=== PATIENT | female | born 1985 | race Caucasian/White ===

== ENCOUNTER 2021-03-07 20:02 | Emergency (ER) | payer OTHER, SELFPAY ==
[2021-03-07 20:03] VITALS: BP 201/138; PULSE 75; RESP 18; TEMP 36.1; O2SAT 99; BMI 32.5
[2021-03-07 20:17] VITALS: BP 174/102; PULSE 65; RESP 17; O2SAT 97
--- NOTE | 2021-03-07 20:46 | EKG12_ITS ---
Test Reason : HTN Blood Pressure : / mmHG Vent. Rate : 065 BPM Atrial Rate : 065 BPM P-R Int : 166 ms QRS Dur : 084 ms QT Int : 436 ms P-R-T Axes : 058 015 -15 degrees QTc Int : 453 ms Normal sinus rhythm T wave abnormality, consider inferior ischemia Nonspecific T wave abnormality :Anterior-Lateral Abnormal ECG Confirmed by FRED BLAKELY, DEYANIRA ([id number]), makeup editor JOSEPH DAHL ([id number]) on 03/09/2021 8:53:30 AM Referred By: ALINA Confirmed By:DEYANIRA IBARRA MD
[2021-03-07 21:09] VITALS: O2SAT 98
[2021-03-07 21:11] VITALS: BP 170/107; PULSE 74
--- NOTE | 2021-03-07 21:20 | RAD_ITS ---
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 LUNGS: No focal airspace consolidation. No pulmonary edema. No pleural effusion. No pneumothorax. MEDIASTINUM AND CARDIOVASCULAR STRUCTURES: Cardiac silhouette not enlarged. Central airways and mediastinal contour are unremarkable. BONES AND SOFT TISSUES: No acute findings. RAD/Chest 1 View (Portable) IMPRESSION: No radiographic evidence of acute cardiopulmonary disease. at 2217 Reported and signed by: Aric Galicia MD Electronically Signed: Aric Galicia MD at 22:16 EDT Tel , Service support ,
--- NOTE | 2021-03-07 21:37 | EX.ED.DYSGE1 ---
HPI History of Present Illness Chief Complaint: Hypertension Narrative Narrative: Patient presenting with elevated blood pressure. She states that she has been feeling this probably for about a month. She states that she has been seeing eye floaters. [place]. She noticed that her blood pressure was high and her family member was a nurse and checked her blood pressure again after he started feeling a little bit nauseous. She did complain of a mild chest discomfort. She was not short of breath. No fever, chills. Her family member gave her 100 of losartan and her blood pressure has come down. She feels improved currently. Patient has a history of high blood pressure when in her 20s when she had gestational high blood pressure. She has not been on anything since then. [facility] Medical History Hypertension Home Medications losartan 50 mg PO DAILY #30 tab 03/07/21 [Rx Last Taken Unknown] Allergy/AdvReac Type Severity Reaction Status Date / Time No Known Allergies Allergy Verified 03/07/21 20:05 Social History Smoking Status: Never smoker ROS ROS ED Constitutional Constitutional ED: Denies chills, fever(s) or sweats Eyes Eyes: Denies blurry vision or change in vision ENT ENT ED: Denies ear pain or sore throat Cardiovascular Cardiovascular: Reports chest pain; Denies palpitations or racing heartbeat Respiratory/Chest Respiratory/Chest: Denies cough, dyspnea or sputum Gastrointestinal Gastrointestinal: Reports nausea; Denies abdominal pain, constipation, diarrhea or vomiting Genitourinary Genitourinary ED: Denies dysuria, hematuria or urinary frequency Musculoskeletal Musculoskeletal: Denies arthralgias, myalgias or neck pain Integumentary Denies abscess, Abrasions or rash Neurologic Neurologic: Reports headache(s); Denies paresthesias or weakness Psychiatric Psychiatric: Denies anxiety, depression, suicidal ideation or suicidal thoughts Endocrine Endocrinology: Denies polydipsia or polyuria EXAM Physical Exam Const Vital Signs: 03/07/21 20:03 03/07/21 20:17 03/07/21 20:38 Temperature 96.9 F L Temperature Source Temporal Pulse Rate 75 65 Respiratory Rate 18 17 Respiratory Effort Normal Respiratory Pattern Normal Blood Pressure 201/138 H 174/102 H Blood Pressure Mean 159 126 Pulse Ox 99 97 Oxygen Delivery Method Room Air Room Air 03/07/21 21:09 03/07/21 21:11 03/07/21 22:08 Temperature Temperature Source Pulse Rate 74 79 Respiratory Rate 17 Respiratory Effort Respiratory Pattern Blood Pressure 170/107 H 150/86 H Blood Pressure Mean 128 107 Pulse Ox 98 98 Oxygen Delivery Method Room Air Room Air General Appearance ED: Negative for pallor HEENT Reports normocephalic, head/scalp atraumatic and moist mucous membranes Eyes PERRL and EOMs intact bilaterally Neck no lymphadenopathy and supple Chest Wall inspection of chest normal and palpation of chest normal Resp normal respiratory effort and clear to auscultation bilaterally Auscultation: Negative for rales, rhonchi or wheezes Cardio regular rate and regular rhythm GI normal to inspection, nondistended, normoactive bowel sounds and non-distended Auscultation: normoactive bowel sounds Palpation: soft Narrative: Deferred Extremity normal to inspection General Extremety ED: Yes edema and tenderness General Extremity: edema Neuro oriented x3, CN's II-XII intact bilaterally, moves all extremities, no focal motor deficits and no sensory deficits noted Sensorium / Orientation: alert Motor Exam: strength 5/5 throughout Psych mental status grossly normal Attitude: No agitated Skin no rashes or lesions noted and no wounds General Skin Exam: Negative for jaundice or pallor MDM MDM MDM Narrative Medical decision making narrative: 32-year-old female presenting with elevated blood pressure. She states she has not had this in a long time. Patient also states she felt a little bit of discomfort in her chest but was not describing chest pressure. She also had some nausea. Patient does not have any cardiac history except for a murmur. EKG on my interpretation shows normal sinus rhythm at [address]-T wave changes. Chest x-ray my interpretation shows no acute cardiopulmonary process and the radiologist does agree. Blood work is ultimately normal troponin is 7. Patient's blood pressure has come down after taking 100 mg of losartan. I do not believe she needs another dose of medication here in the ED. I will start her on losartan 50 mg p.o. daily. She will monitor her blood pressures at home and keep a diary. Patient will follow up with her PCP on outpatient basis. Impression: 1. Hypertension?new 2. Chest pain noncardiac Lab Data Labs: Laboratory Results - last 24 hr 03/07/21 03/07/21 20:26 20:26 WBC 8.8 RBC 4.61 Hgb 13.7 Hct 40.8 MCV 88.5 MCH 29.7 MCHC 33.6 RDW Std Deviation 37.8 RDW Coeff of Guillaume 11.9 Plt Count 275 MPV 10.4 Immature Gran % (Auto) 0.600 Neut % (Auto) 54.6 Lymph % (Auto) 33.2 [place] % (Auto) 7.6 Eos % (Auto) 3.2 Baso % (Auto) 0.8 Absolute Neuts (auto) 4.8 Absolute Lymphs (auto) 2.93 Nucleated RBC % 0 Sodium 139 Potassium 3.6 Chloride 104 Carbon Dioxide 28.0 Anion Gap 7 BUN 19 H Creatinine 0.83 Estim Creat Clear Calc 86.75 Est GFR (MDRD) Af Amer 102 Est GFR (MDRD) Non-Af 84 BUN/Creatinine Ratio 22.9 H Glucose 107 H Calcium 8.9 Troponin I High Sens 7 Radiography Diagnostic Testing: Radiology Impression Chest X-Ray 03/07/21 21:20 IMPRESSION: No radiographic evidence of acute cardiopulmonary disease. at 2217 Reported and signed by: Aric Galicia MD Electronically Signed: Aric Galicia MD at 22:16 EDT Tel , Service support , Discharge Plan Triage Chief Complaint: Hypertension ED Provider: Charly Albrecht Dx/Rx/DC Orders Instructions: ED Hypertension New Begin Treatment Prescriptions: New losartan 50 mg tablet 50 mg PO DAILY Qty: 30 RF: 0 Primary Care Provider: Salazar Pastrana Referrals: Salazar Pastrana MD [Primary Care Provider] - Disposition Disposition: Home, Self Care
[2021-03-07 21:47] LABS: Absolute Lymphocyte Count 2.93 X10^3/uL (0.83-4.51); Absolute Neutrophil Count 4.8 X10^3/uL (2.0-7.7); Basophil# 0.07 X10^3/uL; Basophil% 0.8 % (0-1); Eosinophil# 0.28 X10^3/uL; Eosinophils% 3.2 % (0-5); Hematocrit 40.8 % (37-47); Hemoglobin 13.7 g/dL (12.0-15.0); Lymphocyte # 2.93 X10^3/ul (0.83-4.51); Lymphocyte % 33.2 % (19-41); Mean Corp Hgb Conc 33.6 g/dL (32-36); Mean Corpuscular Hgb 29.7 pg (27.0-32.0); Mean Corpuscular Volume 88.5 fL (81-99); Mean Platelet Vol. 10.4 fl (6.2-12.0); Monocyte# 0.67 X10^3/uL; Monocyte% 7.6 % (0-10); NRBC Flagged by Analyzer 0 % (0-5); Neutrophil # 4.82 X10^3/uL (2.7-7.7); Neutrophil % 54.6 % (47-70); Platelet Count 275 K/mm3 (150-450); RBC Distribution Width CV 11.9 % (11.6-14.6); RBC Distribution Width SD 37.8 fl (35.1-43.9); Red Blood Count 4.61 M/mm3 (4.2-5.4); White Blood Count 8.8 K/mm3 (4.4-11.0)
[2021-03-07 21:54] LABS: Anion Gap 7 (5-15); BUN 19 mg/dL (7-18); BUN/Creat Ratio 22.9 RATIO (10-20); Calcium,Total 8.9 mg/dL (8.5-10.1); Chloride 104 mmol/L (98-107); Creatinine, Serum 0.83 mg/dL (0.55-1.02); EST Glomerular Filtration Rate 84 mL/min (>60); Est Glom Filt Rate - Afr Amer 102 mL/min (>60); Estimated Creatinine Clearance 86.75 ml/min; Glucose 107 mg/dL (74-106); Potassium 3.6 mmol/L (3.5-5.1); Sodium Level 139 mmol/L (136-145); Troponin-I HS 7 pg/mL (3.0-54.0)
[2021-03-07 22:08] VITALS: BP 150/86; PULSE 79; RESP 17; O2SAT 98
[2021-03-07 23:24] VITALS: BP 141/97; PULSE 76; RESP 17; O2SAT 97
== END 2021-03-07 23:25 | disposition home or self-care (01) ==
PROVIDERS: Emergency Provider Student in an Organized Health Care Education/Training Program; PCP Family Medicine
DX: I10 Essential (primary) hypertension (principal); R07.89 Other chest pain
CPT/HCPCS: 71045; 80048; 84484; 85025; 93005; 99284; A4216